=== PATIENT | male | born 1975 | race Caucasian/White ===

== ENCOUNTER → 2017-05-28 | Outpatient (CLI) | payer MEDICAID ==
--- NOTE | 2017-05-28 11:17 | XR ---
EXAMINATION TYPE: XR KUB DATE OF EXAM: 05/28/2017 HISTORY: Pain Comparison: 10/16/2015 Single KUB is submitted for interpretation. Findings: Right renal calculi: None Visualized. Right ureteral calculi: None Visualized. Left renal calculi: Midpole left renal calculus measuring 3 mm. Lower pole left renal calculus measu ring 4.7 mm. Left ureteral calculi: None Visualized. Pelvic calcifications: Stable pelvic calcifications noted. Bowel gas pattern is unremarkable. No free air. No mass effects. IMPRESSION: 1. Left renal calculi.
== END | disposition home or self-care (01) ==
LOC: RADXRMAIN 10:50
PROVIDERS: ATTEND Family Medicine
DX: N20.0 Calculus of kidney (principal)
CPT/HCPCS: 74018

== ENCOUNTER → 2018-01-28 | Outpatient (CLI) | payer MEDICAID ==
--- NOTE | 2018-01-28 11:18 | XR ---
EXAMINATION TYPE: XR KUB DATE OF EXAM: 01/28/2018 HISTORY: Pain Comparison: 05/28/2017 Single KUB is submitted for interpretation. Findings: Right renal calculi: None Visualized. Right ureteral calculi: None Visualized. Left renal calculi: Stable calculi left kidney. Largest calculus lower pole measures approximately 5 mm. Left ureteral calculi: None Visualized. Pelvic calcifications: Pelvic phleboliths are stable. Bowel gas pattern is unremarkable. No free air. No mass effects. IMPRESSION: 1. Stable left-sided nephrolithiasis.
== END | disposition home or self-care (01) ==
LOC: RADXRMAIN 10:41
PROVIDERS: ATTEND Urology
DX: N20.0 Calculus of kidney (principal)
CPT/HCPCS: 74018

== ENCOUNTER 2019-03-15 08:25 | Emergency (ER) | payer MEDICAID ==
[2019-03-15 08:29] VITALS: TEMP 97.8
[2019-03-15] MEDS ORDERED: KETOROLAC 60 MG/2 ML VIAL IM STA (08:43)
[2019-03-15] MEDS ORDERED: TAMSULOSIN 0.4 MG CAP.ER.24H PO STA (08:44)
--- NOTE | 2019-03-15 09:04 | ED ---
General Adult HPI - General Chief complaint: Abdominal Pain Stated complaint: kidney stones Time Seen by Provider: 03/15/19 08:25 Source: patient, RN notes reviewed, old records reviewed Mode of arrival: ambulatory Limitations: no limitations - History of Present Illness Initial comments: This is a 43-year-old male who presents emergency department with past medical history significant for kidney stones. Patient states that about a year and a half since he had his last kidney stone. Patient states yesterday started having some left-sided flank pain radiating into his testicle but this morning he had severe left-sided flank pain and it was an 8 out of 10 prior to arrival. Patient states currently it is subsided. Patient denies any palpable abdominal pain or back pain. Patient has a fever or chills patient denies any hematuria. Patient denies any injury or trauma. Patient states it felt exactly like his previous kidney stones. - Related Data Previous Rx's Medication Instructions Recorded Ketorolac [Toradol] 10 mg PO Q6HR #15 tab 03/15/19 Tamsulosin [Flomax] 0.4 mg PO DAILY #10 cap 03/15/19 Allergies Allergy/AdvReac Type Severity Reaction Status Date / Time No Known Allergies Allergy Verified 03/15/19 09:44 Review of Systems ROS Statement: Those systems with pertinent positive or pertinent negative responses have been documented in the HPI. ROS Other: All systems not noted in ROS Statement are negative. Past Medical History Past Medical History: GERD/Reflux Additional Past Medical History / Comment(s): KIDNEY STONE History of Any Multi-Drug Resistant Organisms: None Reported Past Surgical History: No Surgical Hx Reported Past Psychological History: Anxiety Smoking Status: Light tobacco smoker Past Alcohol Use History: Occasional Past Drug Use History: Marijuana General Exam - General Exam Comments Initial Comments: GENERAL: Patient is well-developed and well-nourished. Patient is nontoxic and well- hydrated and is in no acute distress. ENT: Neck is soft and supple. No significant lymphadenopathy is noted. Oropharynx is clear. Moist mucous membranes. Neck has full range of motion without eliciting any pain. EYES: The sclera were anicteric and conjunctiva were pink and moist. Extraocular movements were intact and pupils were equal round and reactive to light. Eyel ids were unremarkable. PULMONARY: Unlabored respirations. Good breath sounds bilaterally. No audible rales rhonchi or wheezing was noted. CARDIOVASCULAR: There is a regular rate and rhythm without any murmurs gallops or rubs. ABDOMEN: Soft and nontender with normal bowel sounds. SKIN: Skin is clear with no lesions or rashes and otherwise unremarkable. NEUROLOGIC: Patient is alert and oriented x3. Cranial nerves II through XII are grossly intact. Motor and sensory are also intact. Normal speech, volume and content. Symmetrical smile. MUSCULOSKELETAL: Normal extremities with adequate strength and full range of motion. Patient has no CVA tenderness. LYMPHATICS: No significant lymphadenopathy is noted PSYCHIATRIC: Normal psychiatric evaluation. Limitations: no limitations Course Vital Signs 03/15/19 08:27 Temperature 97.8 F Pulse Rate 99 Respiratory 18 Rate Blood Pressure 145/90 O2 Sat by Pulse 99 Oximetry Medical Decision Making - Medical Decision Making KUB shows no acute abnormality. Patient was pain-free in the emergency department. - Lab Data Lab Results 03/15/19 Range/Units 09:22 Urine Color Yellow Urine Appearance Clear (Clear) Urine pH 5.5 (5.0-8.0) Ur Specific [place] 1.022 (1.001-1.035) Urine Protein Trace H (Negative) Urine Glucose (UA) Negative (Negative) Urine Ketones Negative (Negative) Urine Blood Moderate H (Negative) Urine Nitrite Negative (Negative) Urine Bilirubin Negative (Negative) Urine Urobilinogen <2.0 (<2.0) mg/dL Ur Leukocyte Esterase Negative (Negative) Urine RBC 17 H (0-5) /hpf Urine WBC 4 (0-5) /hpf Urine Mucus Rare H (None) /hpf Disposition Clinical Impression: Kidney stone on left side Disposition: HOME SELF-CARE Condition: Good Instructions (If sedation given, give patient instructions): Kidney Stones (ED) Prescriptions: Tamsulosin [Flomax] 0.4 mg PO DAILY #10 cap Ketorolac [Toradol] 10 mg PO Q6HR #15 tab Is patient prescribed a controlled substance at d/c from ED?: No Referrals: Kelvin Prakash III, MD [Primary Care Provider] - 1-2 days Time of Disposition: 09:04
[2019-03-15] MEDS ORDERED: SODIUM CHLORIDE 0.9% 1,000 ML IV STA ×2 (09:06→10:30)
--- NOTE | 2019-03-15 09:15 | XR ---
EXAMINATION TYPE: XR KUB DATE OF EXAM: 03/15/2019 9:07 AM CLINICAL HISTORY: Nephrolithiasis TECHNIQUE: Single supine KUB image of the abdomen is obtained. COMPARISON: 01/28/2018. FINDINGS: Similar appearance of left pelvic phleboliths. The left-sided renal calculi on the prior of 01/28/2018 are no longer visualized radiographically overlying the renal shadow. Right phleboliths a re obscured. Right renal shadow is also obscured. No dilated large or small bowel. Osseous structures appear intact. IMPRESSION: The previously seen left renal calculi on the x-ray 2018 are no longer visualized. No new calculi are seen along the courses of the ureter or the pelvis. Right renal shadow is obscured by bowel gas.
[2019-03-15] MEDS ORDERED: HYDROmorphone 1 MG/ML 1 ML SYRINGE IVP STA (09:30)
[2019-03-15 09:45] LABS: Appearance,Urine Clear (Clear); Bilirubin,Urine Negative (Negative); Blood,Urine Moderate (Negative); Color,Urine Yellow; Glucose,Urine (UA) Negative (Negative); Ketones,Urine Negative (Negative); Leukocyte Esterase,Urine Negative (Negative); Mucus,Urine Rare /hpf; Nitrite,Urine Negative (Negative); PH, Urine 5.5 (5.0-8.0); Protein,Urine Trace (Negative); RBC,Urine 17 /hpf (0-5); Specific Gravity,Urine 1.022 (1.001-1.035); Urobilinogen,Urine <2.0 mg/dL (<2.0); WBC,Urine 4 /hpf (0-5)
[2019-03-15] MEDS ORDERED: HYDROmorphone 0.5 MG/0.5 ML SYRINGE IVP STA (09:54)
[2019-03-15 11:58] VITALS: BP 132/76; PULSE 76; RESP 16
== END 2019-03-15 11:50 | disposition home or self-care (01) ==
LOC: EC 08:25
DX: N20.0 Calculus of kidney (principal); F17.200 Nicotine dependence, unspecified, uncomplicated; Z53.29 Procedure and treatment not carried out because of patient's decision for other reasons
CPT/HCPCS: 81001; 74018; 99284; 96374; 96361 ×2; J1170 ×2

== ENCOUNTER 2020-04-25 20:28 | Emergency (ER) | payer MEDICAID ==
[2020-04-25] MEDS ORDERED: KETOROLAC 15 MG/ML 1 ML VIAL IVP STA (20:44)
[2020-04-25] MEDS ORDERED: ONDANSETRON 4 MG/2 ML VIAL IVP STA (20:44)
[2020-04-25] MEDS ORDERED: MORPHINE SULFATE 2 MG/ML SYRINGE IVP ONE (20:44)
[2020-04-25] MEDS ORDERED: SODIUM CHLORIDE 0.9% 1,000 ML IV STA (20:44)
--- NOTE | 2020-04-25 20:52 | ED ---
Abdominal Pain HPI - General Chief Complaint: Abdominal Pain Stated Complaint: Poss kidney stone Time Seen by Provider: 04/25/20 20:36 Source: patient Mode of arrival: ambulatory Limitations: no limitations - History of Present Illness Initial Comments: Patient is a 44-year-old male presenting to the emergency Department with complaints of pain from his kidney stones. Patient has history of kidney stones, he denies ever having to have surgery for these. He states his pain started yesterday in his lower abdomen, he has been having colicky pain, over the past 2 hours he feels like his pain has increased and he can no longer tolerate it at home. He states he has been trying to take ibuprofen for discomfort without improvement. He did take a Flomax in the morning and this evening as well. He states his pain is currently a 4/10 but about 2 hours ago it was about a 9/10. He describes the pain as around his bladder area. He states it does feel similar to his previous stones. He denies any other history of abdominal surgeries. Denies any fever or chills, no nausea or vomiting. He states he was nauseous few hours ago but that is since passed. He denies any dysuria. He states he has been having a little bit trouble using restroom over the past few hours. He has no further complaints at this time. Upon arrival to the ER, he has tachycardia at 130, rest of vitals are normal. - Related Data Home Medications Medication Instructions Recorded Confirmed [id number] 2 tab PO Q4HR PRN 04/25/20 04/25/20 [Excedrin] Ibuprofen 600 mg PO Q8H PRN 04/25/20 04/25/20 Sulfamethoxazole/Trimethoprim 1 tab PO BID 04/25/20 04/25/20 [Sulfamethoxazole-Tmp Ds Tablet] Tamsulosin [Flomax] 0.4 mg PO BID 04/25/20 04/25/20 Allergies Allergy/AdvReac Type Severity Reaction Status Date / Time No Known Allergies Allergy Verified 04/25/20 21:42 Review of Systems ROS Statement: Those systems with pertinent positive or pertinent negative responses have been documented in the HPI. ROS Other: All systems not noted in ROS Statement are negative. Past Medical History Past Medical History: GERD/Reflux Additional Past Medical History / Comment(s): KIDNEY STONE History of Any Multi-Drug Resistant Organisms: None Reported Past Surgical History: No Surgical Hx Reported Past Psychological History: Anxiety Smoking Status: Vaper Past Alcohol Use History: Occasional Past Drug Use History: Marijuana General Exam - General Exam Comments Initial Comments: GENERAL: Patient is well-developed and well-nourished. Patient is nontoxic and in mild distress. HEAD: Atraumatic, normocephalic. EYES: Pupils equal round and reactive to light, extraocular movements intact, sclera anicteric, conjunctiva are normal. Eyelids were unremarkable. ENT: TMs normal, nares patent, oropharynx clear without exudates. Moist mucous membranes. NECK: Normal range of motion, supple without lymphadenopathy or JVD. LUNGS: Unlabored respirations. Breath sounds clear to auscultation bilaterally and equal. No wheezes rales or rhonchi. HEART: Regular rate and rhythm without murmurs, rubs or gallops. ABDOMEN: Tender over suprapubic area, no other areas of tenderness in the abdomen. No flank pain. Soft, normoactive bowel sounds. No guarding, no rebound. No masses appreciated. : Deferred MUSCULOSKELETAL: Normal extremities with adequate strength and normal range of motion, no pitting or edema. No clubbing or cyanosis. NEUROLOGICAL: Patient is alert and oriented x 3. Motor and sensory are also intact. Cranial nerves II through XII grossly intact. Symmetrical smile. Normal speech, normal gait. PSYCH: Normal mood, normal affect. SKIN: Warm, Dry, normal turgor, no rashes or lesions noted. Limitations: no limitations Course Vital Signs 04/25/20 04/25/20 20:33 21:17 Temperature 99 F Pulse Rate 130 H 95 Respiratory 20 18 Rate Blood Pressure 136/85 132/94 O2 Sat by Pulse 98 98 Oximetry Medical Decision Making - Medical Decision Making Patient is a 44-year-old male with history of kidney stones, presenting for suprapubic discomfort 1 day. He states his pain is consistent with his stones in the past. He has tried Flomax today as well as ibuprofen without improvement and is requesting something additional for the pain. Denies any fever or chills. He has tachycardia upon arrival, rest of vitals are normal. Labs show a slight nuchal cytosis 16.3, this is most likely reactive. Patient's creatinine is slightly elevated at 1.57, urine does show large amount of blood, a few WBCs, occasional bacteria. Urine culture is pending. KUB does not show any acute abnormalities. Patient was given fluids and pain control. He has been resting completely the ER. His heart rate did come down to normal. I discussed these findings with the patient. His findings are consistent with another kidney stone. I will give him 1 g of Rocephin for the occasional bacteria in his urine. Patient will be sent home with Tylenol threes for any severe pain. I recommended continuing with ibuprofen. He is to drink plenty of fluids. He can follow up with his urologist. Return parameters were discussed with the patient and he verbalized understanding. - Lab Data Result diagrams: 04/25/20 21:08 04/25/20 21:08 Lab Results 04/25/20 04/25/20 04/25/20 Range/Units 21:08 21:08 21:08 WBC 16.3 H (3.8-10.6) k/uL RBC 4.54 (4.30-5.90) m/uL Hgb 13.5 (13.0-17.5) gm/dL Hct 39.4 (39.0-53.0) % MCV 86.7 (80.0-100.0) fL MCH 29.8 (25.0-35.0) pg MCHC 34.4 (31.0-37.0) g/dL RDW 12.9 (11.5-15.5) % Plt Count 153 (150-450) k/uL MPV 7.7 Neutrophils % 84 % Lymphocytes % 8 % Monocytes % 4 % Eosinophils % 2 % Basophils % 0 % Neutrophils # 13.7 H (1.3-7.7) k/uL Lymphocytes # 1.4 (1.0-4.8) k/uL Monocytes # 0.7 (0-1.0) k/uL Eosinophils # 0.3 (0-0.7) k/uL Basophils # 0.0 (0-0.2) k/uL Sodium 134 L (137-145) mmol/L Potassium 3.7 (3.5-5.1) mmol/L Chloride 99 (98-107) mmol/L Carbon Dioxide 25 (22-30) mmol/L Anion Gap 10 mmol/L BUN 15 (9-20) mg/dL Creatinine 1.57 H (0.66-1.25) mg/dL Est GFR (CKD-EPI)AfAm 60 (>60 ml/min/1.73 sqM) Est GFR (CKD-EPI)NonAf 52 (>60 ml/min/1.73 sqM) Glucose 137 H (74-99) mg/dL Calcium 9.0 (8.4-10.2) mg/dL Total Bilirubin 4.4 H (0.2-1.3) mg/dL AST 25 (17-59) U/L ALT 21 (4-49) U/L Alkaline Phosphatase 80 (38-126) U/L Total Protein 6.4 (6.3-8.2) g/dL Albumin 3.6 (3.5-5.0) g/dL Urine Color Yellow Urine Appearance Cloudy (Clear) Urine pH 5.5 (5.0-8.0) Ur Specific [place] 1.005 (1.001-1.035) Urine Protein 1+ H (Negative) Urine Glucose (UA) Negative (Negative) Urine Ketones Negative (Negative) Urine Blood Large H (Negative) Urine Nitrite Negative (Negative) Urine Bilirubin Negative (Negative) Urine Urobilinogen <2.0 (<2.0) mg/dL Ur Leukocyte Esterase Moderate H (Negative) Urine RBC 68 H (0-5) /hpf Urine WBC 13 H (0-5) /hpf Urine Bacteria Occasional H (None) /hpf Disposition Clinical Impression: Kidney stones, Lower abdominal pain, Hematuria Disposition: HOME SELF-CARE Condition: Stable Instructions (If sedation given, give patient instructions): Kidney Stones (ED) Additional Instructions: Please return to the Emergency Department if symptoms worsen or any other concerns. Continue to drink lots of fluids. Continue with ibuprofen for discomfort, may take Tylenol #3's for any more severe pain. Follow up with urologist if symptoms persist. Is patient prescribed a controlled substance at d/c from ED?: No Referrals: Kelvin Prakash III, MD [Primary Care Provider] - 1-2 days
--- NOTE | 2020-04-25 21:09 | XR ---
EXAMINATION TYPE: XR KUB DATE OF EXAM: 04/25/2020 COMPARISON: 03/15/2019 HISTORY: Left sided flank pain TECHNIQUE: 3 views upright FINDINGS: Bowel gas pattern is normal. There is no sign of intestinal obstruction or pneumoperitoneum . Fecal pattern is normal. There are no pathologic calcifications over the kidneys. IMPRESSION: Nonacute abdomen. No change.
[2020-04-25 21:19] LABS: Basophils % (A) 0 %; Eosinophils # (A) 0.3 k/uL (0-0.7); Eosinophils % (A) 2 %; HCT 39.4 % (39.0-53.0); HGB 13.5 gm/dL (13.0-17.5); Lymphocytes # (A) 1.4 k/uL (1.0-4.8); Lymphocytes % (A) 8 %; MCH 29.8 pg (25.0-35.0); MCHC 34.4 g/dL (31.0-37.0); MCV 86.7 fL (80.0-100.0); Mean Platelet Volume 7.7; Monocytes # (A) 0.7 k/uL (0-1.0); Monocytes % (A) 4 %; Neutrophils # (A) 13.7 k/uL (1.3-7.7); Neutrophils % (A) 84 %; Platelet Count 153 k/uL (150-450); RBC 4.54 m/uL (4.30-5.90); RDW 12.9 % (11.5-15.5); WBC 16.3 k/uL (3.8-10.6)
[2020-04-25 21:20] VITALS: RESP 18
[2020-04-25 21:25] LABS: Appearance,Urine Cloudy (Clear); Bacteria,Urine Occasional /hpf; Bilirubin,Urine Negative (Negative); Blood,Urine Large (Negative); Color,Urine Yellow; Glucose,Urine (UA) Negative (Negative); Ketones,Urine Negative (Negative); Leukocyte Esterase,Urine Moderate (Negative); Nitrite,Urine Negative (Negative); PH, Urine 5.5 (5.0-8.0); Protein,Urine 1+ (Negative); RBC,Urine 68 /hpf (0-5); Specific Gravity,Urine 1.005 (1.001-1.035); Urobilinogen,Urine <2.0 mg/dL (<2.0); WBC,Urine 13 /hpf (0-5)
[2020-04-25 21:32] LABS: Albumin 3.6 g/dL (3.5-5.0); Potassium 3.7 mmol/L (3.5-5.1); Total Bilirubin 4.4 mg/dL (0.2-1.3); Total Protein 6.4 g/dL (6.3-8.2)
[2020-04-25] MEDS ORDERED: cefTRIAXone IN SWFI 1,000 MG/10 ML SYRINGE IVP STA (21:47)
[2020-04-25] MEDS ORDERED: ACET/COD 300 MG/30 MG STARTER PACK 6 TAB BTL PO STA (21:50)
[2020-04-25 22:14] VITALS: BP 125/72; PULSE 92; TEMP 98
== END 2020-04-25 22:14 | disposition home or self-care (01) ==
LOC: EC 20:28
DX: N20.0 Calculus of kidney (principal); R00.0 Tachycardia, unspecified; F17.290 Nicotine dependence, other tobacco product, uncomplicated
CPT/HCPCS: 36415; 80053; 85025; 81001; 87086; 74018; 99284; 96374; 96375 ×2; 96361; J0696; J2270; J1885